=== PATIENT | male | born 1985 | race Hispanic/Latino ===

== ENCOUNTER 2018-05-02 10:45 | Emergency (ER) | payer SELFPAY ==
--- NOTE | 2018-05-02 12:41 | RAD REPORT ---
EXAM DESCRIPTION: CT - Head Brain Wo Cont - 05/02/2018 12:18 pm CLINICAL HISTORY: VISUAL DISTURBANCES Headache, drowsiness COMPARISON: <Comparisons> TECHNIQUE: All CT scans are performed using dose optimization technique as appropriate and may inclu de automated exposure control or mA/KV adjustment according to patient size. FINDINGS: No intracranial hemorrhage, hydrocephalus or extra-axial fluid collection.No areas of brai n edema or evidence of midline shift. The paranasal sinuses and mastoids are clear. The calvarium is intact. IMPRESSION: No acute intracranial abnormality.
--- NOTE | 2018-05-02 12:48 | ER ---
Nurse's Notes [facility] Name: Adair Ding Age: 33 yrs Sex: Male : 1985 Arrival Date: 05/02/2018 Time: 10:47 Bed Treatment Private MD: None, None Diagnosis: Visual disturbances Presentation: 05/02 11:04 Presenting complaint: Patient states: the night before last, i noticed half of my hj vision the R eye is covered with something, and its getting worse, my vision is limited on my R eye; denies trauma to the area;. Transition of care: patient was not received from another setting of care. Onset of symptoms was May 02, 2018. Risk Assessment: Do you want to hurt yourself or someone else? Patient reports no desire to harm self or others. Initial Sepsis Screen: Does the patient meet any 2 criteria? No. Patient's initial sepsis screen is negative. Does the patient have a suspected source of infection? No. Patient's initial sepsis screen is negative. Care prior to arrival: None. 11:04 Method Of Arrival: Ambulatory 11:04 Acuity: SADIA 4 hj Triage Assessment: 11:07 General: Appears in no apparent distress. uncomfortable, Behavior is calm, cooperative, hj appropriate for age. Pain: Denies pain. Historical: - Allergies: 11:06 Ibuprofen; hj - Home Meds: 11:06 None [Active]; hj - PMHx: 11:06 None; hj - PSHx: 11:06 Appendectomy; hj - Immunization history:: Adult Immunizations not up to date. - Social history:: Smoking status: Patient uses tobacco products, Patient/guardian denies using alcohol. - Ebola Screening: : Patient negative for fever greater than or equal to 101.5 degrees Fahrenheit, and additional compatible Ebola Virus Disease symptoms Patient denies exposure to infectious person Patient denies travel to an Ebola-affected area in the 21 days before illness onset. Screenin:07 Abuse screen: Denies threats or abuse. Denies injuries from another. Nutritional hj screening: No deficits noted. Tuberculosis screening: No symptoms or risk factors identified. Fall Risk None identified. Assessment: 11:45 General: Appears in no apparent distress. comfortable, Behavior is calm, cooperative, ss Denies fever, feeling ill, fatigue, chills. Pain: Denies pain. Neuro: Level of Consciousness is awake, alert, obeys commands, Oriented to person, place, time, situation. Cardiovascular: Capillary refill < 3 seconds is brisk in bilateral fingers Patient's skin is warm and dry. Respiratory: Airway is patent Respiratory effort is even, unlabored, Respiratory pattern is regular, symmetrical. GI: No signs and/or symptoms were reported involving the gastrointestinal system. : No signs and/or symptoms were reported regarding the genitourinary system. EENT: Sclera/Cornea Nares are clear Oral mucosa is moist. Throat is clear. EENT: Reports small black spot of vision to R lower quadrant of visual field. Began 2 nights ago. . Derm: Skin is intact, is healthy with good turgor, Skin is dry, Skin is pink, warm \T\ dry. normal. Musculoskeletal: Circulation, motion, and sensation intact. Range of motion: intact in all extremities. Vital Signs: 11:07 BP 115 / 57; Pulse 64; Resp 18; Temp 98.1(O); Pulse Ox 100% on R/A; Weight 127.01 kg; hj Height 6 ft. 0 in. (182.88 cm); Pain 0/10; 11:07 Body Mass Index 37.98 (127.01 kg, 182.88 cm) hj Visual Acuity: 12:01 Left Eye Visual acuity 20/20, Normal, React To Light, Reactive To Accomodation; Right ss Eye Visual acuity 20/20, Normal, React To Light, Reactive To Accomodation; Both Eyes Visual acuity 20/20; With Lenses; Pt reports a small area of darkness in R lower quadrant of visual field. ED Course: 10:47 Patient arrived in ED. mr 10:48 None, None is Private Physician. mr 11:06 Triage completed. hj 11:07 Arm band placed on right wrist. hj 11:07 Patient has correct armband on for positive identification. Placed in gown. Bed in low hj position. Call light in reach. Side rails up X 1. 11:49 Atilio Mays PA is PHCP. cp 11:49 Atilio rEazo MD is Attending Physician. cp 12:01 Charlette Gentile, MAYI is Primary Nurse. ss 12:18 CT Head Brain wo Cont In Process Unspecified. EDMS 12:47 Quinn Ortega MD is Referral Physician. cp 12:47 No provider procedures requiring assistance completed. Patient did not have IV access ss during this emergency room visit. Administered Medications: No medications were administered Outcome: 12:48 Discharge ordered by MD. cp 12:58 Discharged to home ambulatory. ss 12:58 Condition: good 12:58 Discharge instructions given to patient, Instructed on discharge instructions, follow up and referral plans. medication usage, Demonstrated understanding of instructions, follow-up care, medications. 12:58 Patient left the ED. ss Signatures: Dispatcher [employer] EDWV Suzy Echols Charlette Gentile, RN RN Jelani Simental RN RN hj Atilio Mays, PA PA cp Corrections: (The following items were deleted from the chart) 11:10 11:07 Pulse 64bpm; Resp 18bpm; Pulse Ox 100% RA; Temp 98.1F Oral; 127.01 kg; Height 6 hj ft. 0 in.; BMI: 37.9; Pain 0/10; hj
--- NOTE | 2018-05-02 12:48 | EDPHYS ---
Physician Documentation [facility] Name: Adair Ding Age: 33 yrs Sex: Male : 1985 Arrival Date: 05/02/2018 Time: 10:47 Bed Treatment Private MD: None, None ED Physician Atilio Erazo HPI: 05/02 12:05 This 33 yrs old Male presents to ER via Ambulatory with complaints of Vision cp Problem. 12:05 The patient is experiencing dark brown spot in visual field, to the right eye, caused cp by an unknown mechanism. Onset: The symptoms/episode began/occurred 2 day(s) ago. Duration: the symptoms are continuous. Associated signs and symptoms: Pertinent positives: headache last night that is now resolved, Pertinent negatives: dizziness, ear ache, fever. Patient wears glasses. Severity of symptoms: in the emergency department the symptoms are unchanged despite home interventions. Historical: - Allergies: 11:06 Ibuprofen; hj - Home Meds: 11:06 None [Active]; hj - PMHx: 11:06 None; hj - PSHx: 11:06 Appendectomy; hj - Immunization history:: Adult Immunizations not up to date. - Social history:: Smoking status: Patient uses tobacco products, Patient/guardian denies using alcohol. - Ebola Screening: : Patient negative for fever greater than or equal to 101.5 degrees Fahrenheit, and additional compatible Ebola Virus Disease symptoms Patient denies exposure to infectious person Patient denies travel to an Ebola-affected area in the 21 days before illness onset. ROS: 12:12 Constitutional: Negative for body aches, chills, fever, poor PO intake. cp 12:12 Eyes: Positive for visual disturbance, of the right eye, Negative for discharge, pain, cp redness. 12:12 ENT: Negative for drainage from ear(s), ear pain, sore throat, difficulty swallowing, difficulty handling secretions. 12:12 Cardiovascular: Negative for chest pain, palpitations. 12:12 Respiratory: Negative for cough, shortness of breath, wheezing. 12:12 Abdomen/GI: Negative for abdominal pain, nausea, vomiting, and diarrhea. 12:12 : Negative for urinary symptoms. 12:12 Skin: Negative for cellulitis, rash. 12:12 Neuro: Negative for altered mental status, dizziness, headache, weakness. 12:12 All other systems are negative. Exam: 12:18 Constitutional: The patient appears in no acute distress, alert, awake, non-toxic, well cp developed, well nourished. 12:18 Head/Face: Normocephalic, atraumatic. cp 12:18 Eyes: Periorbital structures: appear normal, Pupils: equal, round, and reactive to light and accomodation, Extraocular movements: intact throughout, Conjunctiva: normal, no exudate, no injection, Corneas: are normal, Sclera: no appreciated abnormality, Anterior chamber: normal, no hyphema, Lids and lashes: appear normal, bilaterally, Visual medley: are intact. 12:18 ENT: External ear(s): are unremarkable, Ear canal(s): are normal, clear, TM's: bulging, is not appreciated, bilaterally, dullness, bilaterally, erythema, is not appreciated, bilaterally, Nose: is normal, Mouth: is normal, Posterior pharynx: Airway: no evidence of obstruction, patent. 12:18 Neck: ROM/movement: is normal, is supple, without pain, no range of motions limitations, no nuchal rigidity. 12:18 Chest/axilla: Inspection: normal. 12:18 Cardiovascular: Rate: normal, Rhythm: regular. 12:18 Respiratory: the patient does not display signs of respiratory distress, Respirations: normal, no use of accessory muscles, no retractions, no splinting, no tachypnea. 12:18 Skin: cellulitis, is not appreciated, no rash present. 12:18 Neuro: Orientation: to person, place \T\ time. Mentation: is normal, Cerebellar function: is grossly normal, Motor: moves all fours, strength is normal, Sensation: is normal, Gait: is steady. Vital Signs: 11:07 BP 115 / 57; Pulse 64; Resp 18; Temp 98.1(O); Pulse Ox 100% on R/A; Weight 127.01 kg; hj Height 6 ft. 0 in. (182.88 cm); Pain 0/10; 11:07 Body Mass Index 37.98 (127.01 kg, 182.88 cm) Visual Acuity: 12:01 Left Eye Visual acuity 20/20, Normal, React To Light, Reactive To Accomodation; Right ss Eye Visual acuity 20/20, Normal, React To Light, Reactive To Accomodation; Both Eyes Visual acuity 20/20; With Lenses; Pt reports a small area of darkness in R lower quadrant of visual field. MDM: 11:49 Patient medically screened. cp 12:00 Differential diagnosis: Corneal abrasion of right eye. Foreign body in right eye. CVA. cp 12:47 Data reviewed: vital signs, nurses notes, radiologic studies, CT scan. 12:47 Counseling: I had a detailed discussion with the patient and/or guardian regarding: the cp historical points, exam findings, and any diagnostic results supporting the discharge/admit diagnosis, radiology results, the need for outpatient follow up, for definitive care, an opthalmologist, to return to the emergency department if symptoms worsen or persist or if there are any questions or concerns that arise at home. ED course: VSS. Head CT negative for acute findings. Will discharge to home and recommend f/u with ophthalmology. 05/02 11:57 Order name: CT Head Brain wo Cont; Complete Time: 12:44 05/02 11:58 Order name: Visual Acuity; Complete Time: 12:00 cp Administered Medications: No medications were administered Disposition: 13:30 Chart complete. 05/03 07:33 Co-signature as Attending Physician, Atilio rEazo MD I agree with the assessment and radha plan of care. Disposition: 05/02/18 12:48 Discharged to Home. Impression: Visual disturbances. - Condition is Stable. - Discharge Instructions: Visual Disturbances, Aspirin and Your Heart. - Medication Reconciliation Form, Thank You Letter, Antibiotic Education, Prescription Opioid Use form. - Work release form (05/02/18 21:53). am2 - Follow up: Quinn Ortega MD; When: Tomorrow; Reason: Recheck today's complaints. - Problem is new. - Symptoms are unchanged. - Notes: take baby aspirin daily Signatures: Dispatcher [employer] EDMS Atilio Erazo MD MD cha Smirch, Shelby, RN RN ss Joaquin, Henry, RN RN hj Page, Corey, PA PA Desirae Wise am2 Corrections: (The following items were deleted from the chart) 05/02 12:58 12:48 05/02/2018 12:48 Discharged to Home. Impression: Visual disturbances. Condition ss is Stable. Forms are Medication Reconciliation Form, Thank You Letter, Antibiotic Education, Prescription Opioid Use. Follow up: Quinn Ortega; When: Tomorrow; Reason: Recheck today's complaints. Problem is new. Symptoms are unchanged. cp
== END 2018-05-02 12:58 | disposition home or self-care (01) ==
LOC: ER 10:45
DX: H53.8 Other visual disturbances (principal); Z72.0 Tobacco use
CPT/HCPCS: 70450; 99283

== ENCOUNTER 2020-07-18 02:09 | Emergency (ER) | payer SELFPAY ==
[2020-07-18 02:51] LABS: Urine Blood Negative (Negative); Urine Glucose Negative (Negative); Urine Protein Negative (Negative); Urine Specific Gravity 1.025 (1.005-1.030)
[2020-07-18] MEDS ORDERED: MORPHINE 4 MG/ML SYR ONE (03:03)
[2020-07-18] MEDS ORDERED: ONDANSETRON 4 MG/2 ML VIAL ONE (03:03)
[2020-07-18] MEDS ORDERED: NA CHLORIDE 0.9% 1,000 ML ONE (03:04)
[2020-07-18 03:05] LABS: Absolute Lymphocytes (CBC) 2.5 K/uL (0.7-4.9); Basophils % 2.3 % (0-1.3); Hematocrit 46.5 % (39.6-49.0); Lymphocytes % 25.9 % (15.3-44.8); MPV 9.8 fL (7.6-11.3); RBC Red Blood Cell Count 5.22 M/uL (4.33-5.43)
[2020-07-18 03:07] LABS: Protime INR 0.95
[2020-07-18 03:17] LABS: ALT/SGPT 31 U/L (12-78); AST/SGOT 12 U/L (15-37); Alkaline Phosphatase 81 U/L (45-117); BUN Blood Urea Nitrogen 13 mg/dL (7-18); Bicarbonate 26 mmol/L (21-32); Bilirubin Direct 0.2 mg/dL (0-0.2); Bilirubin Total 0.5 mg/dL (0.2-1.0); Glucose Level 91 mg/dL (74-106); Lipase 147 U/L (73-393); Potassium 3.7 mmol/L (3.5-5.1); Protein, Total 7.8 g/dL (6.4-8.2); Sodium Level 141 mmol/L (136-145)
[2020-07-18 03:23] LABS: Barbiturates NEGATIVE (NEGATIVE); Benzodiazepines NEGATIVE (NEGATIVE); Cocaine NEGATIVE (NEGATIVE); METHAMPHETAM NEGATIVE (NEGATIVE); Methadone NEGATIVE (NEGATIVE); Opiates NEGATIVE (NEGATIVE); Phencyclidine NEGATIVE (NEGATIVE); THC Cannibis POSITIVE (NEGATIVE)
--- NOTE | 2020-07-18 04:35 | EDPHYS ---
Physician Documentation [facility] Name: Adair Ding Age: 35 yrs Sex: Male : 1985 Arrival Date: 07/18/2020 Time: 02:12 Bed 20 Private MD: ED Physician Ebenezer Barger HPI: 07/18 02:39 This 35 yrs old Male presents to ER via Ambulatory with complaints of mh7 Abdominal Pain. 02:39 The patient presents with abdominal pain in the left upper quadrant. Onset: The mh7 symptoms/episode began/occurred 4 day(s) ago. The symptoms do not radiate. Associated signs and symptoms: Pertinent positives: blood in stools, two times, last was 2 days ago, Pertinent negatives: nausea, vomiting, and diarrhea, nausea and vomiting, anorexia, chest pain, constipation, diarrhea, dysuria, fever, headache, hematuria, nausea, palpitations, shortness of breath, testicular pain, vomiting, vomiting blood. The symptoms are described as intermittent, vague, waxing/waning. Modifying factors: The symptoms are alleviated by nothing, the symptoms are aggravated by nothing. Severity of pain: At its worst the pain was moderate 3 day(s) ago, in the emergency department the pain is unchanged. Historical: - Allergies: 02:24 No Known Allergies; ss - Home Meds: 02:24 None [Active]; ss - PMHx: 02:24 None; ss - PSHx: 02:24 Appendectomy; ss - Immunization history:: Adult Immunizations up to date. - Social history:: Smoking status: Patient/guardian denies using tobacco, Stopped _ months ago .5 Patient/guardian denies using alcohol, street drugs. ROS: 02:39 Constitutional: Negative for fever, chills, and weight loss, Eyes: Negative for injury, mh7 pain, redness, and discharge. 02:39 Neck: Negative for injury, pain, and swelling, Cardiovascular: Negative for chest pain, palpitations, and edema, Respiratory: Negative for shortness of breath, cough, wheezing, and pleuritic chest pain, Back: Negative for injury and pain, : Negative for injury, bleeding, discharge, and swelling, MS/Extremity: Negative for injury and deformity, Skin: Negative for injury, rash, and discoloration, Neuro: Negative for headache, weakness, numbness, tingling, and seizure, Psych: Negative for depression, anxiety, suicide ideation, homicidal ideation, and hallucinations, Allergy/Immunology: Negative for hives, rash, and allergies, Endocrine: Negative for neck swelling, polydipsia, polyuria, polyphagia, and marked weight changes, Hematologic/Lymphatic: Negative for swollen nodes, abnormal bleeding, and unusual bruising. 02:39 ENT: Positive for sore throat. Exam: 02:39 Constitutional: This is a well developed, well nourished patient who is awake, alert, mh7 and in no acute distress. Head/Face: Normocephalic, atraumatic. Eyes: Pupils equal round and reactive to light, extra-ocular motions intact. Lids and lashes normal. Conjunctiva and sclera are non-icteric and not injected. Cornea within normal limits. Periorbital areas with no swelling, redness, or edema. 02:39 Neck: Trachea midline, no thyromegaly or masses palpated, and no cervical lymphadenopathy. Supple, full range of motion without nuchal rigidity, or vertebral point tenderness. No Meningismus. Chest/axilla: Normal chest wall appearance and motion. Nontender with no deformity. No lesions are appreciated. Cardiovascular: Regular rate and rhythm with a normal S1 and S2. No gallops, murmurs, or rubs. Normal PMI, no JVD. No pulse deficits. Respiratory: Lungs have equal breath sounds bilaterally, clear to auscultation and percussion. No rales, rhonchi or wheezes noted. No increased work of breathing, no retractions or nasal flaring. 02:39 Back: No spinal tenderness. No costovertebral tenderness. Full range of motion. Skin: Warm, dry with normal turgor. Normal color with no rashes, no lesions, and no evidence of cellulitis. MS/ Extremity: Pulses equal, no cyanosis. Neurovascular intact. Full, normal range of motion. Neuro: Awake and alert, GCS 15, oriented to person, place, time, and situation. Cranial nerves II-XII grossly intact. Motor strength 5/5 in all extremities. Sensory grossly intact. Cerebellar exam normal. Normal gait. Psych: Awake, alert, with orientation to person, place and time. Behavior, mood, and affect are within normal limits. 02:39 ENT: Mouth: is normal, Posterior pharynx: Airway: normal, Tonsils: are normal in appearance, Uvula: normal, swelling, is not appreciated, erythema, that is moderate, exudate, is not appreciated, peritonsillar mass, is not appreciated, pooling of secretions, is not appreciated, Dental exam: normal, Voice: is normal. 02:39 Abdomen/GI: Inspection: abdomen appears normal, Bowel sounds: normal, in all quadrants, Palpation: moderate abdominal tenderness, in the left upper quadrant, mass, is not appreciated, rebound tenderness, is not appreciated, voluntary guarding, is not appreciated, involuntary guarding, is not appreciated, no appreciated organomegaly, Rectal exam: is unremarkable, Prostate: normal, rectal tone normal, Stool: brown, guaiac negative, hemorrhoid(s), are not appreciated, mass, is not appreciated, swelling, is not appreciated, tenderness, is not appreciated, fecal impaction, is not appreciated, the exam is chaperoned by the nurse, Indicators: McBurney's point is not tender, Otero's sign is negative, Rovsing's sign is negative, Obturator sign is negative, Psoas sign is negative, Liver: no appreciated palpable abnormalities, Hernia: not appreciated. Vital Signs: 02:21 BP 142 / 90; Pulse 59; Resp 16; Temp 97.5(TE); Pulse Ox 99% on R/A; Weight 114.76 kg; ss Height 6 ft. 0 in. (182.88 cm); Pain 8/10; 04:47 BP 135 / 84; Pulse 54; Resp 16; Pulse Ox 99% on R/A; jm8 02:21 Body Mass Index 34.31 (114.76 kg, 182.88 cm) ss MDM: 04:32 Differential diagnosis: bowel obstruction, diverticulitis, gastritis, gastroesophageal mh7 reflux disease, GI Bleed, non-specific abd pain, pancreatitis, Peptic Ulcer Disease, Perf. Duodenal Ulcer, Perf. Gastric Ulcer, Pyelonephritis, Ureterolithiasis, urinary tract infection. Data reviewed: vital signs, nurses notes, lab test result(s), CBC, electrolytes, urinalysis, urine drug screen, EKG, radiologic studies, CT scan. Data interpreted: Pulse oximetry: on room air is 99 %. Interpretation: normal. Counseling: I had a detailed discussion with the patient and/or guardian regarding: the historical points, exam findings, and any diagnostic results supporting the discharge/admit diagnosis, the presence of at least one elevated blood pressure reading (>120/80) during this emergency department visit, lab results, radiology results, the need for outpatient follow up, to return to the emergency department if symptoms worsen or persist or if there are any questions or concerns that arise at home. Response to treatment: the patient's symptoms have resolved after treatment, the patient's blood pressure is in an acceptable range, mental status has returned to baseline, the patient no longer shows bradycardia, the patient is not short of breath, the patient is not tachycardic, the patient's pain is gone, the patient's temperature has normalized, patient is well hydrated. 04:35 Patient medically screened. 07/18 02:38 Order name: Basic Metabolic Panel 07/18 02:38 Order name: CBC with Diff; Complete Time: 03:10 07/18 02:38 Order name: Hepatic Function; Complete Time: 03:24 07/18 02:38 Order name: Lipase; Complete Time: 03:24 07/18 02:38 Order name: UDS; Complete Time: 03:24 07/18 02:38 Order name: Rapid Strep; Complete Time: 03:10 07/18 02:38 Order name: [place] Screen Profile; Complete Time: 03:10 07/18 02:38 Order name: Protime (+inr); Complete Time: 03:10 07/18 02:38 Order name: Ptt, Activated; Complete Time: 03:10 07/18 02:38 Order name: CT Abd/Pelvis - IV Contrast Only 07/18 02:38 Order name: Basic Metabolic Panel; Complete Time: 03:24 [facility] 07/18 02:50 Order name: Urine Dipstick-Ancillary; Complete Time: 03:00 [facility] 07/18 03:06 Order name: Throat Culture [facility] 07/18 02:38 Order name: IV Saline Lock; Complete Time: 02:52 07/18 02:38 Order name: Labs collected and sent; Complete Time: 02:52 07/18 02:38 Order name: Urine Dipstick-Ancillary (obtain specimen); Complete Time: 02:51 07/18 02:38 Order name: EKG - Nurse/Tech; Complete Time: 02:52 [facility] Administered Medications: 02:52 Drug: NS 0.9% 1000 ml Route: IV; Rate: 1000 ml; Site: right antecubital; [facility] 04:49 Follow up: Response: No adverse reaction; IV Status: Completed infusion [facility] 02:52 Drug: morphine 4 mg Route: IVP; Site: right antecubital; 8 04:49 Follow up: Response: No adverse reaction [facility] 02:52 Drug: Zofran (Ondansetron) 4 mg Route: IVP; Site: right antecubital; 8 04:49 Follow up: Response: No adverse reaction [facility] Point of Care Testing: Guaiac: 02:53 Stool Guaiac: Negative; Stool Hemoccult Control: Pass; [facility] Disposition: 07/18/20 04:35 Discharged to Home. Impression: Infectious mononucleosis, unspecified, Upper abdominal pain, unspecified. - Condition is Stable. - Discharge Instructions: Abdominal Pain, Adult, [id number], Infectious Mononucleosis, [id number]. - Medication Reconciliation Form, Thank You Letter, Antibiotic Education, Prescription Opioid Use form. - Follow up: Private Physician; When: 1 - 2 days; Reason: Worsening of condition, Recheck today's complaints, Continuance of care, Re-evaluation by your physician. - Problem is new. - Symptoms have improved. Signatures: Dispatcher [employer] EDMS Charlette Gentile RN RN ss Holmes, Maurice, MD MD mh7 Blue Paz RN RN jm8 Corrections: (The following items were deleted from the chart) 02:24 02:21 Social history: Smoking status: Patient denies any tobacco usage or history of. ssss 04:50 04:35 07/18/2020 04:35 Discharged to Home. Impression: Infectious mononucleosis, jm8 unspecified; Upper abdominal pain, unspecified. Condition is Stable. Forms are Medication Reconciliation Form, Thank You Letter, Antibiotic Education, Prescription Opioid Use. Follow up: Private Physician; When: 1 - 2 days; Reason: Worsening of condition, Recheck today's complaints, Continuance of care, Re-evaluation by your physician. Problem is new. Symptoms have improved. [facility]
--- NOTE | 2020-07-18 04:35 | ER ---
Nurse's Notes [facility] Name: Adair Ding Age: 35 yrs Sex: Male : 1985 Arrival Date: 07/18/2020 Time: 02:12 Bed 20 Private MD: Diagnosis: Infectious mononucleosis, unspecified;Upper abdominal pain, unspecified Presentation: 07/18 02:21 Chief complaint: Patient states: LUQ pain that began 3 days ago. PT also reports that ss he noticed small amount of maroon blood in his stool twice. Denies N/V/D. Coronavirus screen: Client denies travel out of the [place] in the last 14 days. Ebola Screen: Patient denies exposure to infectious person. Patient denies travel to an Ebola-affected area in the 21 days before illness onset. Initial Sepsis Screen: Does the patient meet any 2 criteria? No. Patient's initial sepsis screen is negative. Does the patient have a suspected source of infection? No. Patient's initial sepsis screen is negative. Risk Assessment: Do you want to hurt yourself or someone else? Patient reports no desire to harm self or others. Onset of symptoms was July 15, 2020. 02:21 Method Of Arrival: Ambulatory ss 02:21 Acuity: SADIA 3 ss Historical: - Allergies: 02:24 No Known Allergies; ss - Home Meds: 02:24 None [Active]; ss - PMHx: 02:24 None; ss - PSHx: 02:24 Appendectomy; ss - Immunization history:: Adult Immunizations up to date. - Social history:: Smoking status: Patient/guardian denies using tobacco, Stopped _ months ago .5 Patient/guardian denies using alcohol, street drugs. Screenin:19 Abuse screen: Denies threats or abuse. Denies injuries from another. Nutritional jm8 screening: No deficits noted. Tuberculosis screening: No symptoms or risk factors identified. Fall Risk None identified. Assessment: 02:35 General: Appears in no apparent distress. comfortable, Behavior is calm, cooperative, jm8 appropriate for age. Pain: Complains of pain in abdomen Pain currently is 8 out of 10 on a pain scale. Quality of pain is described as crampy, Pain began 2-3 days ago. Aggravated by exercise, increased activity, repositioning. 02:35 Neuro: No deficits noted. Level of Consciousness is awake, alert, obeys commands, jm8 Oriented to person, place, time. Cardiovascular: No deficits noted. Respiratory: Reports sore throat Airway is patent Trachea midline Respiratory effort is even, unlabored, Respiratory pattern is regular, symmetrical. GI: Reports lower abdominal pain, upper abdominal pain, cramping, diarrhea, rectal bleeding. GI: Bowel sounds present X 4 quads. Abd is soft Abdomen is tender to palpation in left upper quadrant. : No deficits noted. No signs and/or symptoms were reported regarding the genitourinary system. EENT: No deficits noted. No signs and/or symptoms were reported regarding the EENT system. Derm: No deficits noted. No signs and/or symptoms reported regarding the dermatologic system. Musculoskeletal: No deficits noted. No signs and/or symptoms reported regarding the musculoskeletal system. Vital Signs: 02:21 BP 142 / 90; Pulse 59; Resp 16; Temp 97.5(TE); Pulse Ox 99% on R/A; Weight 114.76 kg; Height 6 ft. 0 in. (182.88 cm); Pain 8/10; 04:47 BP 135 / 84; Pulse 54; Resp 16; Pulse Ox 99% on R/A; jm8 02:21 Body Mass Index 34.31 (114.76 kg, 182.88 cm) ED Course: 02:12 Patient arrived in ED. am4 02:16 Ebenezer Barger MD is Attending Physician. [facility] 02:20 Patient has correct armband on for positive identification. Bed in low position. Call jm8 light in reach. Side rails up X2. Adult w/ patient. 02:23 Triage completed. ss 02:24 Arm band placed on right wrist. 02:53 Inserted saline lock: 20 gauge in right antecubital area, using aseptic technique. jm8 03:54 CT Abd/Pelvis - IV Contrast Only In Process Unspecified. EDMS 04:48 No provider procedures requiring assistance completed. IV discontinued, intact, jm8 bleeding controlled. Administered Medications: 02:52 Drug: NS 0.9% 1000 ml Route: IV; Rate: 1000 ml; Site: right antecubital; jm8 04:49 Follow up: Response: No adverse reaction; IV Status: Completed infusion jm8 02:52 Drug: morphine 4 mg Route: IVP; Site: right antecubital; jm8 04:49 Follow up: Response: No adverse reaction 8 02:52 Drug: Zofran (Ondansetron) 4 mg Route: IVP; Site: right antecubital; jm8 04:49 Follow up: Response: No adverse reaction jm8 Point of Care Testing: Guaiac: 02:53 Stool Guaiac: Negative; Stool Hemoccult Control: Pass; jm8 Outcome: 04:35 Discharge ordered by . lora 04:48 Discharged to home ambulatory. jm8 04:48 Condition: good 04:48 Discharge instructions given to patient, Instructed on discharge instructions, follow up and referral plans. medication usage, Demonstrated understanding of instructions, follow-up care, medications. 04:50 Patient left the ED. jm8 Signatures: Dispatcher [employer] EDMS Charlette Gentile RN Ebenezer Rudolph MD MD [email or web address] Martinez, Ashley am4 Malcaba, Joseph, RN RN jm8 Corrections: (The following items were deleted from the chart) 02:24 02:21 Social history: Smoking status: Patient denies any tobacco usage or history of. ssss 02:37 02:35 Pain: Complains of pain in abdomen Pain currently is 5 out of 10 on a pain scale. jm8 jm8
[2020-07-18 04:56] VITALS: TEMP 97.5; O2SAT 99
[2020-07-18 04:58] VITALS: BP 135/84
--- NOTE | 2020-07-18 10:41 | RAD REPORT ---
EXAM DESCRIPTION: CT - Abdomen Pelvis W Contrast - 07/18/2020 6:42 am COMPARISON: None. CLINICAL HISTORY: ABD PAIN TECHNIQUE: CT of the abdomen and pelvis was acquired with IV contrast material. Coronal and sagitt al reconstructions were obtained. Automated exposure control was utilized on this examination as a dose lowering technique. FINDINGS: Lung bases: Clear. Liver: Normal. Gallbladder and biliary: Normal gallbladder. Unremarkable biliary tree. Pancreas: Normal. Spleen: Normal. Adrenal glands: Normal adrenal glands. Kidneys: Normal kidneys Stomach and Small Bowel: The stomach and small bowel are normal. Urinary bladder: Normal. Prostate/Male Urogenital: Normal. Colon and Appendix: There is focal fat stranding adjacent to the descending colon. No evidence of tayler endicitis. Retroperitoneum and lymph nodes: Normal. Vascular: Normal. Peritoneal cavity: No ascites or free air. Musculoskeletal and soft tissues: There is a small fat-containing right inguinal hernia. No aggressiv e bone lesions. No compression fracture. IMPRESSION: Mild focal fat stranding adjacent to the descending colon are favored to represent epipl oic appendagitis. Electronically signed by: Magan Treviño MD 07/18/2020 4:08 AM CDT Due to temporary technical issues with the PACS/Fluency reporting system, reports are being signed by the in house radiologist without review as a courtesy to ensure prompt reporting. The interpreting r adiologist is fully responsible for the content of the report.
--- NOTE | 2020-07-18 16:00 | EKG ---
Test Date: 2020-07-18 Test Time: 02:49:49 Manufacturing Quality Engineer: MEASUREMENT RESULTS: Intervals: Rate: 60 DC: 180 QRSD: 104 QT: 390 QTc: 390 Black: P: 45 DC: 180 QRS: -8 T: 15 INTERPRETIVE STATEMENTS: Normal sinus rhythm Possible Left atrial enlargement Incomplete right bundle branch block Left ventricular hypertrophy Nonspecific T wave abnormality Abnormal ECG No previous ECG available for comparison Electronically Signed On 07-18-20 15:59:57 CDT by Salty Borges
== END 2020-07-18 04:50 | disposition home or self-care (01) ==
LOC: ER 02:09
DX: B27.90 Infectious mononucleosis, unspecified without complication (principal)
CPT/HCPCS: 36415; 74177; 80048; 80076; 80307; 81003; 83690; 85025; 85610; 85730; 86308; 87070; 87081; 93005; 96361; 96374; 96375; 99284; J2405; J7030; Q9967